=== PATIENT | female | born 1985 | race Caucasian/White ===

== ENCOUNTER 2023-02-18 11:38 | Emergency (ER) | payer MEDICAID, OTHER ==
--- NOTE | 2023-02-18 11:45 | ED General ---
General Chief Complaint: OB > 20 WEEKS Stated Complaint: VOMITING; DIARRHEA History of Present Illness Date Seen by Provider: Feb 18, 2023 Time Seen by Provider: 11:44 Initial Comments 37-year-old female who is G4, P2, and 26 weeks with ALIZA of 05/13/2023, with PMH of IV drug use and methamphetamine use, is sent here from [facility] with complaints of diarrhea and vomiting for the past 4 days. Patient has not been able to keep anything down. Today patient feels less movement than usual. Denies fever and chills, abdominal pain, chest pain, shortness of breath, cough, vaginal discharge or vaginal bleeding. No known sick contacts. Allergies and Home Medications Allergies Coded Allergies: amoxicillin (Verified Allergy, Unknown, 02/18/23) Uncoded Allergies: PENICILLIN (Allergy, Unknown, 02/18/23) Patient Home Medication List Home Medication List Reviewed: Yes Review of Systems Review of Systems Constitutional: no symptoms reported EENTM: no symptoms reported Respiratory: no symptoms reported Cardiovascular: no symptoms reported Gastrointestinal: diarrhea, nausea, vomiting Genitourinary: no symptoms reported : Yes Expected Date of Delivery: May 13, 2023 Musculoskeletal: no symptoms reported Skin: no symptoms reported Psychiatric/Neurological: No Symptoms Reported Physical Exam Vital Signs Vital Signs - First Documented 02/18/23 11:40 Temp 35.2 Pulse 103 Resp 16 B/P (MAP) 124/72 (89) Pulse Ox 97 O2 Delivery Room Air Capillary Refill : Height, Weight, BMI Height: '" Weight: lbs. oz. kg; BMI Method: General Appearance: No Apparent Distress, WD/WN HEENT: PERRL/EOMI, Normal ENT Inspection, Other (Dry mucous membranes) Neck: Full Range of Motion, Normal Inspection, Non Tender, Supple Respiratory: Chest Non Tender, Lungs Clear, Normal Breath Sounds Cardiovascular: Regular Rate, Rhythm, No Edema Gastrointestinal: Normal Bowel Sounds, No Organomegaly, Non Tender, Soft Back: Normal Inspection, No CVA Tenderness Extremity: Normal Range of Motion Neurologic/Psychiatric: Alert, Oriented x3 Skin: Normal Color, Other (Tenting of skin) Lymphatic: No Adenopathy Focused Exam Lactate Level 02/18/23 11:52: Lactic Acid Level 0.99 Lactic Acid Level Laboratory Tests Test 02/18/23 11:52 Lactic Acid Level 0.99 MMOL/L (0.50-2.00) Progress/Results/Core Measures Suspected Sepsis SIRS Temperature: Pulse: Respiratory Rate: Laboratory Tests 02/18/23 11:52: White Blood Count 9.4 Blood Pressure / Mean: 02/18/23 11:52: Lactic Acid Level 0.99 Laboratory Tests 02/18/23 11:52: Creatinine 0.56L, Platelet Count 313, Total Bilirubin < 0.2 Results/Orders Lab Results Laboratory Tests Test 02/18/23 11:45 02/18/23 11:52 Range/Units Urine Color DARK YELLOW Urine Clarity SL CLOUDY Urine pH 6.0 5-9 Urine Specific [place] >=1.030 1.016-1.022 Urine Protein 1+ H NEGATIVE Urine Glucose (UA) NEGATIVE NEGATIVE Urine Ketones 1+ H NEGATIVE Urine Nitrite NEGATIVE NEGATIVE Urine Bilirubin 2+ H NEGATIVE Urine Urobilinogen 0.2 < = 1.0 MG/DL Urine Leukocyte Esterase NEGATIVE NEGATIVE Urine RBC (Auto) NEGATIVE NEGATIVE Urine RBC RARE /HPF Urine WBC RARE /HPF Urine Squamous Epithelial Cells 10-25 H /HPF Urine Crystals PRESENT H /LPF Urine Amorphous Sediment FEW GEE URATES H /LPF Urine Bacteria FEW H /HPF Urine Casts NONE /LPF Urine Mucus MODERATE H /LPF Urine Culture Indicated NO Urine Opiates Screen NEGATIVE NEGATIVE Urine Oxycodone Screen NEGATIVE NEGATIVE Urine Methadone Screen NEGATIVE NEGATIVE Urine Propoxyphene Screen NEGATIVE NEGATIVE Urine Barbiturates Screen NEGATIVE NEGATIVE Ur Tricyclic Antidepressants Screen NEGATIVE NEGATIVE Urine Phencyclidine Screen NEGATIVE NEGATIVE Urine Amphetamines Screen NEGATIVE NEGATIVE Urine Methamphetamines Screen POSITIVE H NEGATIVE Urine Benzodiazepines Screen NEGATIVE NEGATIVE Urine Cocaine Screen NEGATIVE NEGATIVE Urine Cannabinoids Screen POSITIVE H NEGATIVE White Blood Count 9.4 4.3-11.0 10^3/uL Red Blood Count 4.75 3.80-5.11 10^6/uL Hemoglobin 14.1 11.5-16.0 g/dL Hematocrit 41 35-52 % Mean Corpuscular Volume 87 80-99 fL Mean Corpuscular Hemoglobin 30 25-34 pg Mean Corpuscular Hemoglobin Concent 34 32-36 g/dL Red Cell Distribution Width 12.8 10.0-14.5 % Platelet Count 313 130-400 10^3/uL Mean Platelet Volume 10.5 9.0-12.2 fL Immature Granulocyte % (Auto) 1 % Neutrophils (%) (Auto) 77 H 42-75 % Lymphocytes (%) (Auto) 12 12-44 % Monocytes (%) (Auto) 10 0-12 % Eosinophils (%) (Auto) 0 0-10 % Basophils (%) (Auto) 0 0-10 % Neutrophils # (Auto) 7.2 1.8-7.8 10^3/uL Lymphocytes # (Auto) 1.1 1.0-4.0 10^3/uL Monocytes # (Auto) 0.9 0.0-1.0 10^3/uL Eosinophils # (Auto) 0.0 0.0-0.3 10^3/uL Basophils # (Auto) 0.0 0.0-0.1 10^3/uL Immature Granulocyte # (Auto) 0.1 0.0-0.1 10^3/uL Sodium Level 132 L 135-145 MMOL/L Potassium Level 3.7 3.6-5.0 MMOL/L Chloride Level 101 98-107 MMOL/L Carbon Dioxide Level 18 L 21-32 MMOL/L Anion Gap 13 5-14 MMOL/L Blood Urea Nitrogen 8 7-18 MG/DL Creatinine 0.56 L 0.60-1.30 MG/DL Estimat Glomerular Filtration Rate 120 BUN/Creatinine Ratio 14 Glucose Level 121 H 70-105 MG/DL Lactic Acid Level 0.99 0.50-2.00 MMOL/L Calcium Level 8.4 L 8.5-10.1 MG/DL Corrected Calcium 8.8 8.5-10.1 MG/DL Magnesium Level 1.8 1.6-2.4 MG/DL Total Bilirubin < 0.2 0.1-1.0 MG/DL Aspartate Amino Transf (AST/SGOT) 19 5-34 U/L Alanine Aminotransferase (ALT/SGPT) 23 0-55 U/L Alkaline Phosphatase 98 40-136 U/L Total Protein 6.6 6.4-8.2 GM/DL Albumin 3.5 3.2-4.5 GM/DL Human Chorionic Gonadotropin, Quant [id number] H <5 MIU/ML My Orders Orders - FREDI SHAW MD Cbc With Automated Diff (02/18/23 11:45) Comprehensive Metabolic Panel (02/18/23 11:45) Drug Screen Stat (Urine) (02/18/23 11:45) Hcg,Quantitative (02/18/23 11:45) Lactic Acid Analyzer (02/18/23 11:45) Magnesium (02/18/23 11:45) Ua Culture If Indicated (02/18/23 11:45) Ed Iv/Invasive Line Start (02/18/23 11:51) Ns Iv 1000 Ml (Sodium Chloride 0.9%) (02/18/23 12:00) Ondansetron Injection (Zofran Injectio (02/18/23 12:00) Us Limited [id number] (02/18/23 11:45) Medications Given in ED Current Medications Medications Dose Ordered Sig/Angelito Route Start Time Stop Time Status Last Admin Dose Admin Ondansetron HCl 4 mg ONCE ONCE IVP 02/18/23 12:00 02/18/23 12:01 DC 02/18/23 12:01 4 MG Vital Signs/I&O 02/18/23 11:40 Temp 35.2 Pulse 103 Resp 16 B/P (MAP) 124/72 (89) Pulse Ox 97 O2 Delivery Room Air Capillary Refill : Progress Note : Progress Note 1. METHAMPHETAMINE & MARIJUANA ABUSE causing DEHYDRATION & HYPONATREMIA: - u/s abdomen: normal, FHR at 147 - CBC: normal WBC and Hb - CMP: unremarkable except for mild hyponatremia, s. Na is 132 - UA: No signs of infection but ketones are positive - UDS: Positive for methamphetamine and marijuana - NS IVF bolus STAT/ Zofran 4mg iv STAT: Pt feels better after this -Advised to stop using drugs -Follow-up with ART PSYCHOTHERAPIST within the next 2 to 3 days -Adequate hydration and nutrition advised -The patient was seen in the ED, and treated appropriately to presentation at a specific point in time. Patient is informed that there is a possibility that disease and illness can evolve and change in acuity rapidly or slowly after patient is discharged from the ER. Precautionary advice given to the patient for immediate return to ER if symptoms worsen or do not resolve, and to seek emergency care sooner rather than later. Pt also advised on the importance of PCP follow up and compliance with management and follow up plan with PCP and/or specialist, as this is part of the management plan. Pt verbally expressed understanding. Departure Impression Primary Impression: Dehydration Additional Impressions: Methamphetamine abuse Marijuana abuse Drug abuse during Disposition: HOME, SELF-CARE Condition: Improved Departure-Patient Inst. Referrals: SELFSREE MD (PCP) Primary Care Physician Patient Instructions: Cannabis hyperemesis syndrome, Marijuana Use and Addiction (DC), Dehydration, Adult (DC), Why Water Is Important to Health Add. Discharge Instructions: -Advised to stop using drugs -Follow-up with ART PSYCHOTHERAPIST within the next 2 to 3 days -Adequate hydration and nutrition advised All discharge instructions reviewed with patient and/or family. Voiced understanding. FREDI SHAW MD Feb 18, 2023 11:45
[2023-02-18 11:53] LABS: GLUCOSE, URINE (UA) NEGATIVE (NEGATIVE); KETONES,URINE 1+ (NEGATIVE); LEUKOCYTE ESTERASE ,URINE NEGATIVE (NEGATIVE); NITRITE,URINE NEGATIVE (NEGATIVE); PROTEIN,URINE 1+ (NEGATIVE)
[2023-02-18] MEDS ORDERED: NS IV 1000 ML 1,000 ML IV SCH (12:00)
[2023-02-18] MEDS ORDERED: ONDANSETRON 4 MG/2 ML (SDV) Z0FRAN IVP ONE (12:00)
[2023-02-18 12:08] LABS: BENZODIAZEPINES SCREEN URINE NEGATIVE (NEGATIVE); COCAINE SCREEN URINE NEGATIVE (NEGATIVE)
[2023-02-18 12:09] LABS: AMPHETAMINE SCREEN, URINE NEGATIVE (NEGATIVE); BARBITURATE SCREEN URINE NEGATIVE (NEGATIVE); CANNABINOID SCREEN, URINE POSITIVE (NEGATIVE); METHADONE STAT NEGATIVE (NEGATIVE); OPIATE SCREEN URINE NEGATIVE (NEGATIVE); OXYCODONE STAT NEGATIVE (NEGATIVE); PROPOXYPHENE STAT NEGATIVE (NEGATIVE); TRICYCLIC ANTIDEPRESSANTS SCRE NEGATIVE (NEGATIVE)
[2023-02-18 12:14] LABS: BASOPHILS % (AUTO) 0 % (0-10); EOSINOPHILS % (AUTO) 0 % (0-10); HEMATOCRIT 41 % (35-52); HEMOGLOBIN 14.1 g/dL (11.5-16.0); LYMPHOCYTES # (AUTO) 1.1 10^3/uL (1.0-4.0); LYMPHOCYTES % (AUTO) 12 % (12-44); MEAN CORPUSCULAR HEMOGLOBIN 30 pg (25-34); MEAN CORPUSCULAR HGB CONC 34 g/dL (32-36); MEAN CORPUSCULAR VOLUME 87 fL (80-99); MEAN PLATELET VOLUME 10.5 fL (9.0-12.2); MONOCYTES # (AUTO) 0.9 10^3/uL (0.0-1.0); MONOCYTES % (AUTO) 10 % (0-12); NEUTROPHILS # (AUTO) 7.2 10^3/uL (1.8-7.8); NEUTROPHILS % (AUTO) 77 % (42-75); PLATELET COUNT 313 10^3/uL (130-400); WHITE BLOOD COUNT 9.4 10^3/uL (4.3-11.0)
[2023-02-18 12:25] LABS: BACTERIA,URINE FEW /HPF; CLARITY,URINE SL CLOUDY; RBC,URINE RARE /HPF; WBC,URINE RARE /HPF
[2023-02-18 12:26] LABS: AMORPHOUS SEDIMENT,UR FEW AMOR URATES /LPF
[2023-02-18 12:28] LABS: BILIRUBIN,URINE 2+ (NEGATIVE); COLOR,URINE DARK YELLOW
[2023-02-18 12:41] LABS: ALANINE AMINOTRANSFERASE 23 U/L (0-55); ALBUMIN 3.5 GM/DL (3.2-4.5); ALKALINE PHOSPHATASE 98 U/L (40-136); BILIRUBIN,TOTAL < 0.2 MG/DL (0.1-1.0); BUN/CREATININE RATIO 14; CALCIUM 8.4 MG/DL (8.5-10.1); CARBON DIOXIDE 18 MMOL/L (21-32); CHLORIDE 101 MMOL/L (98-107); CREATININE SERUM 0.56 MG/DL (0.60-1.30); GFR ESTIMATED 120; GLUCOSE 121 MG/DL (70-105); MAGNESIUM 1.8 MG/DL (1.6-2.4); POTASSIUM 3.7 MMOL/L (3.6-5.0); SODIUM 132 MMOL/L (135-145); TOTAL PROTEIN 6.6 GM/DL (6.4-8.2)
[2023-02-18] MEDS ORDERED: ONDA4TAB11 SL (12:58)
[2023-02-18 13:01] VITALS: BP 124/72
--- NOTE | 2023-02-18 14:01 | Diagnostic Imaging Report ---
US LIMITED [id number] INDICATION: Decreased movement COMPARISON: None available. TECHNIQUE: Limited transabdominal sonographic imaging of the gravid uterus. FINDINGS: There is a single live intrauterine in cephalic presentation. Placenta is anterior position and there is no previa. heart rate is 147 bpm. The amount of amniotic fluid is visually appropriate and the SUSU is normal at 17.28 cm. IMPRESSION: Single live intrauterine . Dictated by: Dictated on workstation # [id number]
== END 2023-02-18 13:01 | disposition home or self-care (01) ==
LOC: ER FS 11:41
DX: O99.322 Drug use complicating pregnancy, second trimester (principal); F15.10 Other stimulant abuse, uncomplicated; F12.10 Cannabis abuse, uncomplicated; O99.282 Endocrine, nutritional and metabolic diseases complicating pregnancy, second trimester; E86.0 Dehydration; Z3A.26 26 weeks gestation of pregnancy
CPT/HCPCS: 36415; 76815; 80053; 80306; 81000; 83605; 83735; 84702; 85025

== ENCOUNTER → 2023-05-08 | Outpatient (CLI) | payer OTHER ==
[~2023-05-08] VITALS: Ht 162.6 cm; Wt 99.1 kg
[~2023-05-08] MED LIST: MULT-228 PO; ONDA4TAB11 SL
== END | disposition home or self-care (01) ==
LOC: PREOP 06:07
PROVIDERS: ATTEND Obstetrics & Gynecology
DX: Z01.818 Encounter for other preprocedural examination (principal)

== ENCOUNTER 2023-05-16 05:34 | Inpatient (IN) | payer OTHER ==
[2023-05-16] VITALS (10 sets, daily range): BP systolic 108–129; BP diastolic 56–75
[~2023-05-16] VITALS: Ht 169 cm; Wt 102.8 kg
--- OUTSIDE RECORDS SUMMARY | 2023-05-16 05:40 | XMS REPORT ---
Author Author [facility] ter of [facility] ter of [facility] Address Unknown Phone Unavailable Care Team Providers Care Web Marketing Manager Name Role Phone NURA BOBBY Unavailable PROBLEMS Type Condition ICD9-CM Code LRE31-FU Code Onset Dates Condition Status W/U Status Risk SNOMED Code Notes Problem Methamphetami ne abuse F15.10 confirmed 938272451 Problem Obesity affecting in second trimester, unspecified obesity type O99.212 confirmed 8667637 191 07 Problem History of intravenous drug abuse F19.11 confirmed [id number] ALLERGIES Allergen (clinical drug ingredient) Drug/Non Drug Allergy documented on EMR Reaction Allergy Type Onset Date Status amoxicillin Amoxicillin([facility] Code:[address]-66) rash Drug Allergy Active ENCOUNTERS from 1984 to 2023-02-13 Encounter Location Date Provider Diagnosis [facility] [address] [facility] [id number] [address] Feb, NURA BOBBY Gonorrhea A54.9 SOCIAL HISTORY Sex Assigned At : Social History Observation Description Sex Assigned At Unknown DAST-10 (2020 Edition) Question Answer Notes 1. Have you used drugs other than those required for medical reasons? Yes 2. Do you abuse more than one drug at a time? Ye s 3. Are you always able to stop using drugs when you want to? Yes 4. Have you had "blackouts" or "flashbacks" as a result of drug use? Yes 5. Do you ever feel bad or guilty about your susan g use? No 6. Does your spouse (or pare nts) ever complain about your involvement with drugs? No 7. Have you neglected your f amily because of your use of drugs? Yes 8. Have you engaged in illeg al activities in order to obtain drugs? Yes 9. Have you ever experienced withdrawal symptoms (felt sick) when you stopped taking drugs? No 10. Have you had medical pro blems as a result of your drug use (e.g., memory loss, hepatitis, convulsions, bleeding etc.)? Yes Results: 6 Interpretation of Score: Substantial level PHQ2 Question Answer Notes In the last 2 weeks, how oft en have you had little interest or pleasure in doing things? Not at all In the last 2 weeks, how oft en have you been feeling down, depressed, or hopeless? Not at all Total PHQ2 Score 0 REASON FOR REFERRAL No Information VITAL SIGNS Height 65 in Feb, Height-cm 165.1 cm Feb, Weight 168 lbs Feb, Weight-kg 76.2 kg Feb, BMI 27.95 kg/m2 Feb, MEDICATIONS Medication SIG (Take, Route, Fr equency, Duration) Notes Start Date End Date Status 28-0.8 MG 1 tablet Orally Once a day Active REASON FOR VISIT Diarrhea, Pt arrived to clinic for gonorrhea after coming back positiveRic Lopez MEDICAL (GENERAL) HISTORY Type Description Date Medical History c section 2004 Medical History c section 2010 Medical History 2007 Medical History right ovary removed 2008 Surgical History section Surgical History ovariy removal of cyst --Right Hospitalization History see surgeries MENTAL STATUS No Information ASSESSMENTS Encounter Date Diagnosis Assessment Notes Treatment Notes Treatment Clinical Notes Feb, Gonorrhea (ICD-10 - A54.9) PLAN OF TREATMENT Next Appt Details Provider Name:STACEY RAJAN, 01:40:00 PM, [address] [place] [address], [phone], Provider Name:NICO RITTER, 2023-03-31 02:20:00 PM, [address] [place] [address], [phone], Provider Name:STACEY RAJAN 02:20:00 PM, [address] [place] [address], [phone], Provider Name:NICO RITTER, 2023-04-28 02:20:00 PM, [address] [place], [phone], Provider Name:STACEY MCKINNONBOB, 2 02:20:00 PM, [address] [place] [address], [phone], Provider Name:STACEY RAJAN, 2 02:20:00 PM, [address] [place] [address], [phone], Insurance Providers Payer Name Payer Address Payer Phone Insured Name Patient Relationship to Insured Coverage Start Date Coverage End Date Subscriber Number Group Number [facility] [address] [facility] [phone] Emily Robin Self - patient is the insured [id number] [facility] [address] [facility] [address] Emily Robin Self - patient is the insured 2 MEDICA[place] [address] [facility] [id number] Emily Robin Self - patient is the insured [id number] MEDICATIONS ADMINISTERED Medication Instructions Date of Administration Vishnu Leonard Feb, 500 mg
--- OUTSIDE RECORDS SUMMARY | 2023-05-16 05:40 | XMS REPORT ---
Author Author [facility] ter of [facility] ter of [facility] Address Unknown Phone Unavailable Care Team Providers Care Squash Centre Manager Name Role Phone NURA BOBBY Unavailable PROBLEMS Type Condition ICD9-CM Code LLP09-RP Code Onset Dates Condition Status W/U Status Risk SNOMED Code Notes Problem Methamphetami ne abuse F15.10 confirmed [id number] Problem Obesity affecting in second trimester, unspecified obesity type O99.212 confirmed 5276095 191 07 Problem History of intravenous drug abuse F19.11 confirmed [id number] ALLERGIES Allergen (clinical drug ingredient) Drug/Non Drug Allergy documented on EMR Reaction Allergy Type Onset Date Status amoxicillin Amoxicillin([facility] Code:[address]-74) rash Drug Allergy Active ENCOUNTERS from 1984 to 2023-02-14 Encounter Location Date Provider Diagnosis [facility] [address] [facility] [id number] [address] Feb, NURA RICSHERICEJOSELYN Other specified bacterial agents as the cause of diseases classified elsewhere B96.89 ; Acute vaginitis N76.0 and High risk sexual behavior Z72.51 SOCIAL HISTORY Sex Assigned At : Social [...] 168 lbs Feb, Weight-kg 76.2 kg Feb, Temperature 98.8 degrees Fahrenheit Feb, Heart Rate 101 bpm Feb, Oximetry 98 % Feb, BMI 27.95 kg/m2 Feb, Blood pressure systolic 130 mmHg Feb, Blood pressure diastolic 77 mmHg Feb, MEDICATIONS Medication SIG (Take, Route, Fr equency, Duration) Notes Start Date End Date Status 28-0.8 MG 1 tablet Orally Once a day Active REASON FOR VISIT possible yeast infection, Pt states that she was having vaginal discharge one month ago but it has since then went away. Pt sexual partner woke up with penile discharge. Denies any new partners or current symptoms.ManoharStacy MEDICAL (GENERAL) HISTORY Type Description Date Medical History c section 2004 Medical History c section 2010 Medical History 2007 Medical History right ovary removed 2009 Surgical History section Surgical History ovariy removal of cyst --Right Hospitalization History see surgeries MENTAL STATUS No Information ASSESSMENTS Encounter Date Diagnosis Assessment Notes Treatment Notes Treatment Clinical Notes Feb, Acute vaginitis (ICD-10 - N76.0) Bacterial vaginosis is an infection in the vagina that can cause bad-smelling vaginal discharge. "Vaginal discharge" is the term doctors and nurses use to describe any fluid that comes out of the vagina. Normally, women have a small amount of vaginal discharge each day. But women with bacterial vaginosis can have a lot of vaginal discharge, or vaginal discharge that smells bad. Bacterial vaginosis is caused by certain bacteria (germs). The vagina normally has different types of bacteria in it. When the amounts or the types of bacteria change, an infection can happen. Women do not catch bacterial vaginosis from having sex with men. But women who have bacterial vaginosis have a higher chance of catching other infections from their partner during sex. Women who have sex with other women might pass bacterial vaginosis on to their sex partners. Many women with bacterial vaginosis have no symptoms. When women have symptoms, they often have a "fishy-smelling" vaginal discharge that they might notice more after sex. The discharge is watery and off-white or rivera. Women may also notice a burning feeling in the vagina. Most women have fewer side effects when they use the gel or cream treatment. But if you continue to have symptoms, we can prescribe an oral treatment that may be more effective for you. It is important that you take all of the medicine prescribed, even if your symptoms go away after a few doses. Taking all of your medicine can help prevent the symptoms from coming back. If your sex partner is a man, he does not need to be treated if you have bacterial vaginosis. But if you have sex with other women, you should tell any partners about your bacterial vaginosis. That way they can be treated if they also get symptoms. If your symptoms come back, let your doctor or nurse know. You might need treatment with more medicine. Some women get bacterial vaginosis over and over again. These women might take medicine for 3 to 6 months to try to prevent future infections. If you are and have symptoms of bacterial vaginosis, tell your doctor or nurse. You can help prevent bacterial vaginosis by: -Not douching (douching is when a woman puts a liquid inside her vagina to rinse it out) -Using condoms when you have sex -Not smoking Feb, Other specified bacterial agents as the cause of diseases classified elsewhere (ICD-10 - B96.89) Feb, High risk sexual behavior (ICD-10 - Z72.51) Results discussed in office with patient who voiced understanding. Patient will be notified when additional results are available. Chlamydia, gonorrhoea, herpes, genital warts, human papillomavirus (HPV), trichomonas, johanny and bacterial vaginosis discussed with patient. Do not have sexual contact with anyone while you are being treated. If your treatment was a single dose of antibiotics, wait at least 7 days after taking the dose before you have any sexual contact. Even if you use a condom, you may pass the infection back and forth. Feb, Other Medications as prescribed, rest as able, push fluids, call/return if symptoms worsen or do not improve. Emergency room for worsening symptoms. PLAN OF TREATMENT Treatment Notes Assessment Notes Clinical Notes Acute vaginitis Bacterial vaginosis is an infection in the vagina that can cause bad-smelling vaginal discharge. "Vaginal discharge" is the term doctors and nurses use to describe any fluid that comes out of the vagina. Normally, women have a small amount of vaginal discharge each day. But women with bacterial vaginosis can have a lot of vaginal discharge, or vaginal discharge that smells bad. Bacterial vaginosis is caused by certain bacteria (germs). The vagina normally has different types of bacteria in it. When the amounts or the types of bacteria change, an infection can happen. Women do not catch bacterial vaginosis from having sex with men. But women who have bacterial vaginosis have a higher chance of catching other infections from their partner during sex. Women who have sex with other women might pass bacterial vaginosis on to their sex partners. Many women with bacterial vaginosis have no symptoms. When women have symptoms, they often have a "fishy-smelling" vaginal discharge that they might notice more after sex. The discharge is watery and off-white or rivera. Women may also notice a burning feeling in the vagina. Most women have fewer side effects when they use the gel or cream treatment. But if you continue to have symptoms, we can prescribe an oral treatment that may be more effective for you. It is important that you take all of the medicine prescribed, even if your symptoms go away after a few doses. Taking all of your medicine can help prevent the symptoms from coming back. If your sex partner is a man, he does not need to be treated if you have bacterial vaginosis. But if you have sex with other women, you should tell any partners about your bacterial vaginosis. That way they can be treated if they also get symptoms. If your symptoms come back, let your doctor or nurse know. You might need treatment with more medicine. Some women get bacterial vaginosis over and over again. These women might take medicine for 3 to 6 months to try to prevent future infections. If you are and have symptoms of bacterial vaginosis, tell your doctor or nurse. You can help prevent bacterial vaginosis by: -Not douching (douching is when a woman puts a liquid inside her vagina to rinse it out) -Using condoms when you have sex -Not smoking High risk sexual behavior Results discus sed in office with patient who voiced understanding. Patient will be notified when additional results are available. Chlamydia, gonorrhoea, herpes, genital warts, human papillomavirus (HPV), trichomonas, johanny and bacterial vaginosis discussed with patient. Do not have sexual contact with anyone while you are being treated. If your treatment was a single dose of antibiotics, wait at least 7 days after taking the dose before you have any sexual contact. Even if you use a condom, you may pass the infection back and forth. Next Appt Details if not improving or regular follow up with pcp Reason: Provider Name:STACEY RAJAN 2 01:40:00 PM, [address] [place] [address], [phone], Provider Name:NICO RITTER, 2023-03-31 02:20:00 PM, [address] [place] [address], [phone], Provider Name:STACEY RAJAN 2 02:20:00 PM, [address] [place] [address], [phone], Provider Name:NICO RITTER, 2023-04-28 02:20:00 PM, [address] [place] [address], [phone], Provider Name:STACEY RAJAN 2 02:20:00 PM, [address] [place] [address], [phone], Provider Name:STACEY RAJAN 2 02:20:00 PM, [address] [place] [address] [place], [phone], Insurance Providers Payer Name Payer Address Payer Phone Insured Name Patient Relationship to Insured Coverage Start Date Coverage End Date Subscriber Number Group Number [employer] [address] [facility] [id number] Emily Robin Self - patient is the insured 2 [facility] [address] [facility] [id number] Emily Robin Self - patient is the insured [id number] MEDICAID OF [place] [address] [facility] [address] Emily Robin Self - patient is the insured [id number] MEDICATIONS ADMINISTERED Medication Instructions Date of Administration Vishnu Leonard Feb, 500 mg
[2023-05-16] MEDS ORDERED: FAMOTIDINE INJ 20MG/2ML VIAL IV ONE (05:45)
[2023-05-16] MEDS ORDERED: LACTATED RINGERS 1,000 ML 1,000 ML IV PRN (05:45)
[2023-05-16] MEDS ORDERED: CITRIC ACID/SODIUM CITRATE ORAL SOLN 30 ML PO ONE (05:45)
[2023-05-16] MEDS ORDERED: CATHETER FLUSH 10 ML SYR IV PRN (05:45)
[2023-05-16] MEDS ORDERED: METOCLOPRAMIDE INJ 10 MG/2 ML IV ONE (05:45)
[2023-05-16] MEDS ORDERED: ceFAZolin INJECTION 2,000 MG in NS (IVPB) 50 ML 50 ML IV ONE (05:45)
[2023-05-16 05:58] LABS: BASOPHILS # (AUTO) 0.1 10^3/uL (0.0-0.1); BASOPHILS % (AUTO) 0 % (0-10); EOSINOPHILS # (AUTO) 0.4 10^3/uL (0.0-0.3); EOSINOPHILS % (AUTO) 3 % (0-10); HEMATOCRIT 40 % (35-52); HEMOGLOBIN 13.9 g/dL (11.5-16.0); LYMPHOCYTES # (AUTO) 2.8 10^3/uL (1.0-4.0); LYMPHOCYTES % (AUTO) 19 % (12-44); MEAN CORPUSCULAR HEMOGLOBIN 30 pg (25-34); MEAN CORPUSCULAR HGB CONC 34 g/dL (32-36); MEAN CORPUSCULAR VOLUME 86 fL (80-99); MEAN PLATELET VOLUME 11.3 fL (9.0-12.2); MONOCYTES # (AUTO) 0.9 10^3/uL (0.0-1.0); MONOCYTES % (AUTO) 6 % (0-12); NEUTROPHILS # (AUTO) 10.6 10^3/uL (1.8-7.8); NEUTROPHILS % (AUTO) 72 % (42-75); PLATELET COUNT 319 10^3/uL (130-400); WHITE BLOOD COUNT 14.8 10^3/uL (4.3-11.0)
[2023-05-16] MEDS: LACTATED RINGERS 1,000 ML 1,000 ML IV PRN ×2 (06:15→06:48)
[2023-05-16 06:39] LABS: BAND NEUTROPHILS 1 %; EOSINOPHILS % (MANUAL) 4 %; LYMPHOCYTES % (MANUAL) 26 %; MONOCYTES % (MANUAL) 4 %; NEUTROPHILS % (MANUAL) 64 %; RBC MORPH NORMAL; REACTIVE LYMPHOCYTES 1 %
[2023-05-16] MEDS ORDERED: FLU QUADRIvalent (6 months+) 60 mcg/0.5 ml 2023-2024 (FLUARIX) IM ONE (06:45)
--- NOTE | 2023-05-16 06:56 | History & Physical-OB ---
OB - Chief Complaint & HPI Date/Time Date of Admission: Date of Admission: May 16, 2023 at 05:34 Date seen by a Provider: May 16, 2023 Time Seen by a Provider: 06:15 Chief Complaint/History OB-Reason for Admission/Chief: Section Hx Para: 2 Expected Date of Delivery: May 23, 2023 Gestational Age in Weeks: 39 Gestational Age in Days: 0 Indication for : desires repeat Admission Nurse Assessment Rev: Yes History of Labs O+ GBS neg RPR neg HEP B/C neg R-NI Other This 37-year-old G4, P2 presents for repeat low-transverse section. She denies any loss of fluid vaginal bleeding or contractions. Her last C- section she had an hemorrhage and had to go back for surgery. We discussed risk benefits and alternatives including the risks of infection bleeding injury to bowel bladder ureters scar tissue formation VTE nerves and limb damage anesthesia risks. Patient verbalized understanding and signed consents and is ready to proceed. Allergies and Home Medications Allergies Coded Allergies: amoxicillin (Verified Allergy, Unknown, 02/18/23) Patient Home Medication List Home Medication List Reviewed: Yes Multivitamin (Flintstones) 1 Each Tab.chew, 1 EACH PO, (Reported) Entered as Reported by: Ashlee Mcpherson on 05/09/23 1127 Last Action: Reviewed Discontinued Medications Ondansetron (Ondansetron Odt) 4 Mg Tab.rapdis, 4 MG SL Q4H PRN for NAUSEA/VOMITING Discontinued Reason: No Longer Taking Prescribed by: FREDI SHAW MD on 02/18/23 1258 OB - History Hx of Present Care: Yes Ultrasounds: Normal mid trimester US Obstetrical Complications: None Medical Complications: None Information Induced Hypertension: No Maternal Gestational Diabetes: No Hemorrhage: No Obstetrical History Hx : 4 Hx Para: 3 Hx # Term Pregnancies: 2 Hx # Pregnancies: 1 Number of Living Children: 2 Delivery History Hx Section: Yes (x3) Risk Variables Obstetrical Risk Variables: POA Previous Patient Past Medical History none Social History/Family History Alcohol Use: Denies Use Recreational Drug Use: Yes Smoking Cessation: Current every day smoker Immunizations Influenza Vaccine Up-to-Date: No; Not Current Rubella: not immune RPR/VDRL: Negative GBS Status: Negative HBsAG: Negative OB - Admission Exam Physical Exam Vitals: Vital Signs 05/16/23 06:09 Temp 36.5 Pulse 85 Resp 18 Pulse Ox 97 O2 Delivery Room Air HEENT: NCAT Heart: Rhythm Normal Lungs: Clear Abdomen: Gravid Extremities: Normal Reflexes: Normal Cervical Dilatation: None Heart Rate: 140's Accelerations: Accelerations Present Decelerations: No Decelerations Short Term Variability: Present Portrait Artist Variability: Average (6-25) Contractions on Admission: None Intensity: Mild Labs Laboratory Tests Test 05/16/23 05:50 Range/Units White Blood Count 14.8 H 4.3-11.0 10^3/uL Red Blood Count 4.68 3.80-5.11 10^6/uL Hemoglobin 13.9 11.5-16.0 g/dL Hematocrit 40 35-52 % Mean Corpuscular Volume 86 80-99 fL Mean Corpuscular Hemoglobin 30 25-34 pg Mean Corpuscular Hemoglobin Concent 34 32-36 g/dL Red Cell Distribution Width 13.8 10.0-14.5 % Platelet Count 319 130-400 10^3/uL Mean Platelet Volume 11.3 9.0-12.2 fL Immature Granulocyte % (Auto) 1 % Neutrophils (%) (Auto) 72 42-75 % Lymphocytes (%) (Auto) 19 12-44 % Monocytes (%) (Auto) 6 0-12 % Eosinophils (%) (Auto) 3 0-10 % Basophils (%) (Auto) 0 0-10 % Neutrophils # (Auto) 10.6 H 1.8-7.8 10^3/uL Lymphocytes # (Auto) 2.8 1.0-4.0 10^3/uL Monocytes # (Auto) 0.9 0.0-1.0 10^3/uL Eosinophils # (Auto) 0.4 H 0.0-0.3 10^3/uL Basophils # (Auto) 0.1 0.0-0.1 10^3/uL Immature Granulocyte # (Auto) 0.1 0.0-0.1 10^3/uL Neutrophils % (Manual) 64 % Lymphocytes % (Manual) 26 % Monocytes % (Manual) 4 % Eosinophils % (Manual) 4 % Band Neutrophils 1 % Reactive Lymphocytes 1 % Blood Morphology Comment NORMAL OB - Assessment/Plan/Diagnosis Assessment Assessment: section Admission Dx IUP at 39 weeks History of previous section Admit for repeat low-transverse section Admission Status: Inpatient Order (span 2 midnights) Reason for Inpatient Admission: IUP at 39 weeks History of previous section Admit for repeat low-transverse section Plan Plan: Section Copy Copies To 1: STACEY RAJAN MD, VICTORIA A DO May 16, 2023 06:56
--- NOTE | 2023-05-16 07:01 | Cesarean Section Operative ---
Procedure Procedure Note Pre-operative Diagnosis: Emily Robin is a (37 /Para / , Gestational Age (wks)39 For repeat low-transverse section Post-operative Diagnosis: same Plus liveborn female Procedure: Repeat low transverse section Physician: PRERNA GUTIERREZ Paper Bag Maker: Myrna Estimated blood loss: 700 mL Disposition: Counts correct x3 patient taken to recovery room in stable condition Findings: Viable Female infant, Apgars 9/9, weight 7#2oz, intact placenta, 3vc, normal appearing uterus, tubes, and ovaries. Indications:Emily Robin is a (37 /Para / ,Gestational Age (wks)39 presenting forRepeat low-transverse section. She has had 3 previous sections her last she experienced a hemorrhage for which she had to return to surgery for. She elected to go with a repeat low- transverse section we had discussed the risk benefits and alternatives in great detail. The patient verbalized understanding had all of her questions answered to her satisfaction, signed consents and is ready to proceed. Procedure Details: Informed consent was obtained and signed patient was taken to the OR suite placed under spinal anesthesia placed in the dorsal supine position with the left lateral tilt prepped and draped usual sterile fashion with Michael catheter placed inside the urinary bladder. A timeout was performed. Anesthesia was confirmed using an Allis clamp and a Pfannenstiel skin incision was made through the previous incision site carried down to level the fascia the fascia was nicked and incised bilaterally with Estrada scissors and reflected off the rectus abdominis muscle both superiorly and inferiorly. The rectus abdominis muscle was in the midline and the peritoneum was entered into sharply and extended bilaterally. An extra-large Domingo self-retaining retractor was then inserted and rolled up so that we could have good exposure. The patient had had 3 previous sections and the bladder flap was adhered to the anterior uterine wall. Using Metzenbaums and pickups today vesicouterine fascia was nicked and incised bilaterally and the bladder flap was reflected off of the uterus. A low transverse uterine incision was made and extended bilaterally the head was doing delivered atraumatically the mouth and nose were bulb suctioned the posterior shoulder (left) was delivered followed by the anterior shoulder followed by the rest the . After 60 seconds the cord was clamped and then cut the was placed in the nurses care RN and then taken to the warmer. The placenta delivered spontaneously intact with a three-vessel cord Cord bloods were obtained. The uterus was exteriorized and cleared of all clot and debris the uterine incision was reapproximated using 0 Vicryl in a running locking fashion and imbricated using 0 Vicryl in a running fashion for excellent hemostasis. The uterus tubes and ovaries were noted to be normal and placed back inside the abdominal cavity. Uterine incision was inspected and was noted to be hemostatic. The abdominal cavity was then irrigated and incised incision was inspected once more and again noted to be hemostatic. The peritoneum and rectus abdominis muscle was reapproximated using 0 Vicryl in a running fashion. The fascia was reappr oximated using 1-0 Vicryl in running fashion. The subcutaneous was reapproximated using 2-0 Vicryl in running fashion and the skin was reapproximated using 3-0 Monocryl in a subcuticular fashion and then sealed with Dermabond. All of the counts were correct x3. The estimated blood loss was 700 cc fluids were 1100 cc urine output was 50 cc and irrigation was 600 cc. The mother and tolerated the procedure well and the recovery in the room in stable condition. Vitals - Labs Vital Signs - I&O Vital Signs Date Time Temp Pulse Resp B/P (MAP) Pulse Ox O2 Delivery O2 Flow Rate FiO2 05/16/23 06:09 36.5 85 18 97 Room Air I & O 05/16/23 07:00 Intake Total 950 ml Balance 950 ml Labs Laboratory Tests 05/16/23 05:50: White Blood Count 14.8H, Red Blood Count 4.68, Hemoglobin 13.9, Hematocrit 40, Mean Corpuscular Volume 86, Mean Corpuscular Hemoglobin 30, Mean Corpuscular He moglobin Concent 34, Red Cell Distribution Width 13.8, Platelet Count 319, Mean Platelet Volume 11.3, Immature Granulocyte % (Auto) 1, Neutrophils (%) (Auto) 72, Lymphocytes (%) (Auto) 19, Monocytes (%) (Auto) 6, Eosinophils (%) (Auto) 3, Basophils (%) (Auto) 0, Neutrophils # (Auto) 10.6H, Lymphocytes # (Auto) 2.8, Monocytes # (Auto) 0.9, Eosinophils # (Auto) 0.4H, Basophils # (Auto) 0.1, Immature Granulocyte # (Auto) 0.1, Neutrophils % (Manual) 64, Lymphocytes % (M anual) 26, Monocytes % (Manual) 4, Eosinophils % (Manual) 4, Band Neutrophils 1, Reactive Lymphocytes 1, Blood Morphology Comment NORMAL PRERNA GUTIERREZ DO May 16, 2023 07:01
[2023-05-16 07:14] LABS: AMPHETAMINE SCREEN, URINE NEGATIVE (NEGATIVE); BARBITURATE SCREEN URINE NEGATIVE (NEGATIVE); CANNABINOID SCREEN, URINE POSITIVE (NEGATIVE); COCAINE SCREEN URINE NEGATIVE (NEGATIVE); METHADONE STAT NEGATIVE (NEGATIVE); OPIATE SCREEN URINE NEGATIVE (NEGATIVE); OXYCODONE STAT NEGATIVE (NEGATIVE); TRICYCLIC ANTIDEPRESSANTS SCRE NEGATIVE (NEGATIVE)
[2023-05-16] MEDS ORDERED: fentaNYL INJECTION 100 MCG/2 ML VIAL ONE (07:15)
[2023-05-16] MEDS ORDERED: TRANEXAMIC ACID 100 MG/ML 10 ML INJECTION ONE (07:23)
--- NOTE | 2023-05-16 07:23 | Discharge Summary ---
Discharge Summary Hospital Course Problems Reviewed?: Yes Hospital Course Date of Admission: May 16, 2023 at 05:34 Admission Diagnosis : Family Physician/Provider: Neville Howe MD Date of Discharge: 05/16/23 Discharge Diagnosis: s/p RLTCS Hospital Course: Patient was admitted for repeat low-transverse section she delivered a liveborn and did very well intraoperatively. Her postoperative course was uneventful she was discharged to home with pain medications and instructions for follow-up and care. Labs and Pending Lab Test: Laboratory Tests 05/16/23 05:50: White Blood Count 14.8H, Red Blood Count 4.68, Hemoglobin 13.9, Hematocrit 40, Mean Corpuscular Volume 86, Mean Corpuscular Hemoglobin 30, Mean Corpuscular Hemoglobin Concent 34, Red Cell Distribution Width 13.8, Platelet Count 319, Mean Platelet Volume 11.3, Immature Granulocyte % (Auto) 1, Neutrophils (%) (Auto) 72, Lymphocytes (%) (Auto) 19, Monocytes (%) (Auto) 6, Eosinophils (%) (Auto) 3, Basophils (%) (Auto) 0, Neutrophils # (Auto) 10.6H, Lymphocytes # (Auto) 2.8, Monocytes # (Auto) 0.9, Eosinophils # (Auto) 0.4H, Basophils # (Auto) 0.1, Immature Granulocyte # (Auto) 0.1, Neutrophils % (Manual) 64, Lymphocytes % (Manual) 26, Monocytes % (Manual) 4, Eosinophils % (Manual) 4, Band Neutrophils 1, Reactive Lymphocytes 1, Blood Morphology Comment NORMAL, Urine Opiates Screen NEGATIVE, Urine Oxycodone Screen NEGATIVE, Urine Methadone Screen NEGATIVE, Urine Barbiturates Screen NEGATIVE, Ur Tricyclic Antidepressants Screen NEGATIVE, Urine Phencyclidine Screen NEGATIVE, Urine Amphetamines Screen NEGATIVE, Urine Methamphetamines Screen NEGATIVE, Urine Benzodiazepines Screen NEGATIVE, Urine Cocaine Screen NEGATIVE, Urine Cannabinoids Screen POSITIVEH Home Meds Active Reported Flintstones (Multivitamin) 1 Each Tab.chew 1 Each PO Activity: Activity as Tolerated Driving Instructions: No Driving for 1 Week NO SMOKING: NO SMOKING Nothing Inside Vagina: No Douching, No Edison, No Tampons Discharge Diet: Regular Diet Symptoms to Report to : Pain Increased, Fever Over 101 Degrees F, Vaginal Bleeding Increase, Vaginal Discharge Foul For Any Problems or Questions: Contact Your Physician Infection Signs and Symptoms: Increased Redness, Foul Odor of Wound, Increased Drainage, Skin Itchy or Has a Rash, Increased Swelling, Temperature Above 101 F Operative Area Clean and Dry: Keep Incision Clean/Dry Stitches/[place]/Dermabond: Dermabond Discharge Physical Examination Allergies: Coded Allergies: amoxicillin (Verified Allergy, Unknown, 02/18/23) Vitals & I&Os Vital Signs Date Time Temp Pulse Resp B/P (MAP) Pulse Ox O2 Delivery O2 Flow Rate FiO2 05/16/23 06:09 36.5 85 18 97 Room Air Discharge Summary Date of Admission May 16, 2023 at 05:34 Date of Discharge Supervisory-Addendum Brief Verification & Attestation Participated in pt care: history, MDM, physical Personally performed: exam, history, MDM, supervision of care Care discussed with: other Procedures: n/a Results interpretation: Verified all documentation I personally saw and examined this patient PRERNA GUTIERREZ DO May 16, 2023 07:23
[2023-05-16] MEDS ORDERED: MEASLES, MUMPS, RUBELLA VACCINE (MMR) SC SCH (07:30)
[2023-05-16] MEDS ORDERED: ONDANSETRON INJECTION 4 MG/2 ML (SDV) IVP PRN (07:30)
[2023-05-16] MEDS ORDERED: Tetanus/Diphtheria/Pertussis (Acell) ADULT Vaccine 0.5 ML IM SCH (07:30)
[2023-05-16] MEDS ORDERED: NALOXONE 0.4 MG/ML 1 ML VIAL IV PRN (07:30)
[2023-05-16] MEDS ORDERED: morphine INJ 4 MG/ML 1 ML (VIAL/SYRINGE) IV PRN (07:30)
[2023-05-16] MEDS ORDERED: KETOROLAC INJ 30 MG/ML VIAL ONE ×2 (07:45→08:40)
[2023-05-16] MEDS ORDERED: OXYTOCIN DRIP PRE-MIX 500 ML IV ONE ×2 (07:45→08:12)
[2023-05-16] MEDS: KETOROLAC INJ 15 MG/ML VIAL IV SCH ×4 (08:15→22:42)
[2023-05-16] MEDS ORDERED: ONDANSETRON INJECTION 4 MG/2 ML (SDV) ONE (08:25)
[2023-05-16] MEDS ORDERED: IBUP-1780 PO (08:36)
[2023-05-16] MEDS ORDERED: ACHD5005 PO (08:36)
[2023-05-16] MEDS ORDERED: BUPIVACAINE 0.5% 30 ML VIAL ONE (08:40)
[2023-05-16] MEDS: DOCUSATE SODIUM 100 MG CAPSULE PO SCH ×2 (09:13→19:46)
[2023-05-16] MEDS: ACETAMINOPHEN 500 MG TABLET PO SCH ×3 (09:14→19:46)
[2023-05-16] MEDS: OXYTOCIN DRIP PRE-MIX 500 ML IV SCH ×3 (09:16→13:37)
[2023-05-16] MEDS: CATHETER FLUSH 10 ML SYR IV SCH ×2 (11:32→22:47)
[2023-05-16] MEDS ORDERED: TRANEXAMIC ACID 100 MG/ML 10 ML INJECTION IV ONE (11:45)
[2023-05-16] MEDS: METOCLOPRAMIDE 10 MG TABLET PO SCH ×2 (12:35→19:46)
[2023-05-16] MEDS: oxyCODONE IMMEDIATE RELEASE 5 MG TABLET PO PRN ×2 (16:23→22:41)
[2023-05-17 00:22] VITALS: BP 112/61
[2023-05-17] MEDS: ACETAMINOPHEN 500 MG TABLET PO SCH ×4 (02:00→21:22)
[2023-05-17] MEDS: METOCLOPRAMIDE 10 MG TABLET PO SCH ×4 (02:00→21:23)
[2023-05-17] MEDS: CATHETER FLUSH 10 ML SYR IV SCH (05:16)
[2023-05-17] MEDS: KETOROLAC INJ 15 MG/ML VIAL IV SCH (05:16)
[2023-05-17 05:31] VITALS: BP 118/65
[2023-05-17 05:48] LABS: BASOPHILS % (AUTO) 0 % (0-10); EOSINOPHILS # (AUTO) 0.3 10^3/uL (0.0-0.3); EOSINOPHILS % (AUTO) 2 % (0-10); HEMATOCRIT 34 % (35-52); HEMOGLOBIN 11.8 g/dL (11.5-16.0); LYMPHOCYTES # (AUTO) 2.4 10^3/uL (1.0-4.0); LYMPHOCYTES % (AUTO) 20 % (12-44); MEAN CORPUSCULAR HEMOGLOBIN 30 pg (25-34); MEAN CORPUSCULAR HGB CONC 35 g/dL (32-36); MEAN CORPUSCULAR VOLUME 86 fL (80-99); MEAN PLATELET VOLUME 11.7 fL (9.0-12.2); MONOCYTES # (AUTO) 0.9 10^3/uL (0.0-1.0); MONOCYTES % (AUTO) 7 % (0-12); NEUTROPHILS # (AUTO) 8.7 10^3/uL (1.8-7.8); NEUTROPHILS % (AUTO) 70 % (42-75); PLATELET COUNT 265 10^3/uL (130-400); WHITE BLOOD COUNT 12.4 10^3/uL (4.3-11.0)
[2023-05-17] MEDS ORDERED: IBUPROFEN 800 MG TABLET PO SCH (07:30)
[2023-05-17 08:25] VITALS: BP 139/63
[2023-05-17] MEDS: DOCUSATE SODIUM 100 MG CAPSULE PO SCH ×2 (08:27→21:22)
--- NOTE | 2023-05-17 09:20 | Progress Note ---
Standard Progress Note Progress Notes/Assess & Plan Date Seen by a Provider: May 17, 2023 Time Seen by a Provider: 09:10 Progress/Assessment & Plan ROLL FORMING MACHINE OPERATOR Blueprint Engineer: POD #1 s/p scheduled repeat S: Patient doing well per RN and patient report. Pain well controlled, tolerating diet and voiding without difficulty. Denies heavy vaginal bleeding. Post op CBC stable. O: VSS/AF Abdomen SNT, Uterus firm at 6 cm below umbilicus Incision is clean and well approximated with 4 cm clot on surface of left half of incision and small amount bloody oozing as reported by RN and confirmed on exam. Normal lochia No calf pain or pitting edema in lower extremities. A/P: Patient doing well Normal post-op care SW involved due maternal hx of drug use (+THC) for years Discussed possible switch over to rooming in status with patient. Patient voiced understanding, no questions or concerns voiced. RN present in room during patient encounter. Final Diagnosis 39 weeks LUIS DISLA DO May 17, 2023 09:20
[2023-05-17] MEDS: IBUPROFEN 800 MG TABLET PO SCH ×2 (12:11→21:22)
[2023-05-17 14:55] VITALS: BP 133/72
--- NOTE | 2023-05-17 16:16 | Anesthesia-Regional Post-Op ---
Regional Patient Condition Mental Status: Alert, Oriented x3 Circulation: Same as Pre-Op Headache: Absent Sensation: Full Recovery Motor Block: Absent Post Op Complications Complications None Follow Up Care/Instructions Patient Instructions None needed. Anesthesia/Patient Condition Patient is doing well, no complaints, stable vital signs, no apparent adverse anesthesia problems. No complications reported per nursing. SHELIA CORTES CRNA May 17, 2023 16:16
[2023-05-17 21:22] VITALS: BP 137/82
[2023-05-17] MEDS: oxyCODONE IMMEDIATE RELEASE 5 MG TABLET PO PRN (21:23)
[2023-05-18 04:20] VITALS: BP 115/73
[2023-05-18] MEDS: METOCLOPRAMIDE 10 MG TABLET PO SCH ×2 (04:20→10:37)
[2023-05-18] MEDS: ACETAMINOPHEN 500 MG TABLET PO SCH ×2 (04:21→10:37)
[2023-05-18] MEDS: IBUPROFEN 800 MG TABLET PO SCH ×2 (04:23→12:35)
--- NOTE | 2023-05-18 08:58 | Short Stay Summary ---
Discharge Summary Hospital Course Was the Problem List Reviewed?: Yes Final Diagnosis: 39 Weeks, Hospital Course Date of Admission: May 16, 2023 at 05:34 Admission Diagnosis : Family Physician/Provider: Neville Howe MD Date of Discharge: 05/18/23 Discharge Diagnosis: 39 weeks, Hospital Course: 37 year old G4 now P3 at 39 weeks underwent scheduled repeat on 05/16/23 productive of viable 7 lbs 2 onz. female with 9/9. She had an uncomplicated post-op course, tolerating diet, voiding and ambulating on post-op day 1, ready for discharge on post-op day #2. Pain also well controlled with motrin and patien denies heavy bleeding. Patient declined discharge pain meds at time of discharge, says she has Motrin at home. Baby to remain in house due to licensed social worker involvement. Patient to call [facility] tomorrow when office opens to schedule post-op incision check. Labs and Pending Lab Test: Microbiology 05/16/23 MRSA Screen - Final, Complete MRSA not isolated Home Meds Active Hydrocodone-Acetamin 5-325 mg (Hydrocodone/Acetaminophen) 5 Mg-325 Mg Tablet 1 Tab PO Q4H PRN Ibuprofen 800 Mg Tablet 800 Mg PO Q8H Take 1 tablet every 8 hours as needed for pain Reported Flintstones (Multivitamin) 1 Each Tab.chew 1 Each PO Assessment/Pt Instructions Per Instruction Sheet for Patients Call clinic tomorrow to schedule incision check with Dr. Sethi Discharge Instructions Discharge Diet: No Restrictions, Regular Diet Discharge Physical Examination General Appearance: Alert, Oriented X3, Cooperative, No Acute Distress Abdominal: Soft, No Tenderness, Other (Incision clean and dry with no erythema, no longer oozing.) Extremities: No Clubbing, No Edema Skin: No Rashes Neuro: Normal Gait Psych/Mental Status: Mental Status NL Allergies: Coded Allergies: amoxicillin (Verified Allergy, Unknown, 02/18/23) Discharge Summary Date of Admission May 16, 2023 at 05:34 Date of Discharge 05/18/23 Discharge Date: May 18, 2023 Discharge Time: 09:00 Admission Diagnosis 39 weeks Prior Consults/Procedures Procedures Section Discharge Diagnosis 39 weeks LUIS DISLA DO May 18, 2023 08:55
[2023-05-18] MEDS ORDERED: FLU QUADRIvalent (6 months+) 60 mcg/0.5 ml 2023-2024 (FLUARIX) IM ONE (10:34)
[2023-05-18] MEDS: DOCUSATE SODIUM 100 MG CAPSULE PO SCH (10:37)
[2023-05-18 10:53] VITALS: BP 136/74
== END 2023-05-18 13:40 | disposition home or self-care (01) | DRG 787 ==
LOC: LDRP 05:34
PROVIDERS: ADMIT Obstetrics & Gynecology; ATTEND Obstetrics & Gynecology
PROC: 10D00Z1 Extraction of Products of Conception, Low, Open Approach (ICD-10-PCS; principal; 2023-05-16 07:24)
DX: O34.211 Maternal care for low transverse scar from previous cesarean delivery (principal); O99.323 Drug use complicating pregnancy, third trimester; Z3A.39 39 weeks gestation of pregnancy; Z37.0 Single live birth; O99.334 Smoking (tobacco) complicating childbirth; F17.200 Nicotine dependence, unspecified, uncomplicated; F12.90 Cannabis use, unspecified, uncomplicated; Z23 Encounter for immunization
CPT/HCPCS: 36415; 80306; 85007; 85025; 85027; 86850; 86900; 86901; 87081; 90686; 90707